=== PATIENT | male | born 1975 | race Caucasian/White ===

== ENCOUNTER → 2017-04-17 | Outpatient (CLI) | payer OTHER ==
[~2017-04-17] MED LIST: CONRAY-43 43% 50ML VIAL (Q9960) As Ordered ONE
--- NOTE | 2017-04-17 14:15 | REP ---
MR ARTHROGRAPHY LEFT SHOULDER WITH PRE AND POST INTRA-ARTICULAR GADOLINIUM ENHANCED SALINE INJECTED IMAGING: HISTORY: Left shoulder pain. Limited range of motion. No comparison radiographs. TECHNIQUE: The injection procedure is performed and dictated separately. Pre and post intra-articular gadolinium enhanced saline injected imaging is acquired. Imaging planes include axial, oblique coronal, oblique sagittal and ABER projection images. T1 and T2-weighted scans are included with and without fat saturation. MRI FINDINGS: Pre injection MR imaging demonstrates cortical and medullary bone signal intensity is normal. There is subcortical cyst formation in the superolateral humeral head. There is minimal hypertrophy at the AC joint superiorly. Pre-injection images also show a focal area of attenuation and T2 fluid signal in the distal supraspinatus tendon most consistent with a full-thickness tear. There is a small sliver of subacromial subdeltoid bursal fluid. Post injection imaging demonstrates good filling and enhancement of the left glenohumeral articulation. There is a [place] complex. No labral tear is appreciated. No loose body is seen. There is no contrast enhancement within the focal distal supraspinatus defect on T1-weighted scans post injection. The lesion is therefore felt to be partial thickness rather than full thickness. No other evidence of cuff tear is seen. ABER images show no visible labral disruption. IMPRESSION: Partial thickness distal supraspinatus tendon tear with intra tendon increased signal intensity. Tiny subacromial subdeltoid bursal effusion. Signed by Matthias Adan MD 04/17/2017 05:03 P
--- NOTE | 2017-04-17 17:10 | REP ---
Procedure: Left shoulder arthrogram The procedure was performed under the direct supervision of Dr. ortiz the Way. History: Left shoulder pain The benefits and risks including but not limited to pain, infection, bleeding and anaphylaxis were explained to the patient and informed consent was obtained. Technique: The left glenohumeral joint space was localized using fluoroscopic guidance. The skin was prepped and draped in a sterile fashion. 1% lidocaine was used as a local anesthetic. Using fluoroscopic guidance a 22 gauge spinal needle was inserted and advanced into the joint. 0.5 ml of Conray 43 was injected to verify placement. 11 ml of a solution containing 20 ml of sterile saline and 0.15 ml of ProHance was injected into the joint. The needle was removed and the patient was taken to MRI for postprocedural imaging. The the patient tolerated the procedure well and there were no immediate complications. 2 seconds of fluoro time was utilized for this procedure. Reviewed by PREM Bose 04/17/2017 03:11 PSigned by Matthias Adan MD 04/17/2017 05:01 P
== END ==
LOC: M RADPRO 06:38
PROVIDERS: ATTEND Physician Assistant
DX: S46 Injury of muscle, fascia and tendon at shoulder and upper arm level (principal); M75.92 Shoulder lesion, unspecified, left shoulder; M25.412 Effusion, left shoulder; X58.XXXD Exposure to other specified factors, subsequent encounter; Y93.9 Activity, unspecified; Y92.9 Unspecified place or not applicable; Y99.8 Other external cause status
CPT/HCPCS: 23350; 73223; 77002; A9576; Q9960

== ENCOUNTER 2018-12-28 19:50 | Emergency (ER) | payer OTHER ==
[~2018-12-28] VITALS: Ht 175.3 cm; Wt 94.1 kg
[2018-12-28] MEDS ORDERED: MAGNESIUM SULFATE 1 GM/100 ML D5W BAG (10MG/ML) (J3475) As Ordered ONE (20:03)
[2018-12-28] MEDS ORDERED: ADENOSINE 6MG/2ML INJECTION (J0153) IV STA (20:13)
[2018-12-28] MEDS ORDERED: NS 1,000 ML IV ONE (20:15)
[2018-12-28] MEDS ORDERED: MAG SULF 1GM/100ML (MAG RUN) 1 GM in APPROPRIATE DILUENT 1 EA IV ONE (20:15)
[2018-12-28 20:21] LABS: BASO # 0.1 10^3/uL (0.0-0.2); BASO % 0.7 % (0.0-1.0); EOS # 0.2 10^3/uL (0.0-0.50); EOS % 2.6 % (0.0-3.0); HEMATOCRIT 46.4 % (42.0-52.0); HEMOGLOBIN 16.3 g/dl (13.5-17.5); LYMPH # 3.1 10^3/uL (1.5-4.5); LYMPH % 37.7 % (24.0-44.0); MEAN CORPUSCULAR HEMOGLOBIN 32.6 pg (27.0-33.0); MEAN CORPUSCULAR HGB CONC 35.1 g/dl (32.0-36.5); MEAN CORPUSCULAR VOLUME 92.8 fl (80.0-96.0); MONO # 0.7 10^3/uL (0.0-0.8); MONO % 8.4 % (0.0-5.0); NEUTROPHILS # 4.1 10^3/uL (1.8-7.7); NEUTROPHILS % 50.5 % (36.0-66.0); PLATELET COUNT, AUTOMATED 265 10^3/uL (150-450); WHITE BLOOD COUNT 8.1 10^3/uL (4.0-10.0)
[2018-12-28] MEDS ORDERED: AMIODARONE HCL 150 MG in APPROPRIATE DILUENT 1 EA IV STA (20:21)
[2018-12-28] MEDS ORDERED: AMIODARONE HCL 150 MG/100 ML PREMIXED BAG (NEXTERONE) As Ordered ONE (20:22)
[2018-12-28 21:00] LABS: ALBUMIN 4.2 GM/DL (3.2-5.2); ALT/SGPT 34 U/L (12-78); BILIRUBIN,DIRECT < 0.1 MG/DL (0.0-0.2); BILIRUBIN,TOTAL 0.6 MG/DL (0.2-1.0); BLOOD UREA NITROGEN 17 MG/DL (7-18); CALCIUM LEVEL 8.8 MG/DL (8.5-10.1); CARBON DIOXIDE LEVEL 27 MEQ/L (21-32); CHLORIDE LEVEL 106 MEQ/L (98-107); CPK CREATINE PHOSPHOKINASE 166 U/L (39-308); CREATININE FOR GFR 1.12 MG/DL (0.70-1.30); GLOMERULAR FILTRATION RATE > 60.0 (>60); GLUCOSE, FASTING 142 MG/DL (70-100); MB/CK RELATIVE INDEX 0.78 (< OR =4); NT-PRO BNP 104 PG/ML (<125); POTASSIUM SERUM 4.3 MEQ/L (3.5-5.1); SODIUM LEVEL 141 MEQ/L (136-145); THYROID STIMULATING HORMONE 0.802 uIU/ML (0.358-3.740); TOTAL PROTEIN 7.5 GM/DL (6.4-8.2); TROPONIN I < 0.02 NG/ML (< 0.10)
[2018-12-28] MEDS ORDERED: AMIODARONE HCL 150 MG in APPROPRIATE DILUENT 1 EA IV ONE (21:00)
[2018-12-28 22:04] VITALS: BP 112/70
--- NOTE | 2018-12-29 03:57 | REP ---
Clinical: Acute chest pain . Comparison: None of the . Findings: The mediastinum and cardiac silhouette are stable and within normal limits for portable technique. The lung gonzalez are clear without acute consolidation, effusion, or pneumothorax. Skeletal structures are intact. Impression: No acute cardiopulmonary process appreciated. Electronically Signed by Rnoan Do MD 12/29/2018 03:48 A
--- NOTE | 2018-12-29 06:28 | ECGEPIP ---
Stationary ECG Study [facility] - ED Test Date: 2018-12-28 Pat Name: ALLEN CANALES Department: Room: - Gender: M Senior Human Resources Representative: : 1975 Requested By: ALLEN Can Order Number: [id number] Reading MD: Robel Merchant Measurements Intervals [place] Rate: 173 P: 72 MI: 137 QRS: 67 QRSD: 89 T: 69 QT: 326 QTc: 554 Interpretive Statements SINUS RHYTHM WITH NONSUSTAINED VENTRICULAR TACHYCARDIA Electronically Signed On 12-29-2018 6:28:04 EDT by Robel Merchant
--- NOTE | 2018-12-29 06:29 | ECGEPIP ---
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
== END 2018-12-28 22:15 | disposition home or self-care (01) ==
LOC: M ED 19:50
DX: R07.9 Chest pain, unspecified (principal); Z86.79 Personal history of other diseases of the circulatory system
CPT/HCPCS: 71045; 80048; 80076; 82550; 82553; 83735; 83880; 84443; 84484; 85025; 93005; 93041; 94760; 96365; 96375; 99291; J3475